=== PATIENT | female | born 1980 | race Caucasian/White ===

== ENCOUNTER 2021-05-10 09:35 | Emergency (ER) | payer OTHER ==
[~2021-05-10] VITALS: Ht 160 cm; Wt 59.9 kg
[~2021-05-10 09:35] MED LIST: HYOSCYAMINE0.375 M2 PO; NOHOMEMEDICATIONS; ZOFRAN 4 MG ORAL4 MG PO
[2021-05-10] MEDS ORDERED: IBUPROFEN 800800 MG PO (10:00)
[2021-05-10] MEDS ORDERED: AMOXICILLIN 50500 MG PO (10:00)
[2021-05-10 10:06] VITALS: BP 112/77
== END 2021-05-10 10:07 | disposition home or self-care (01) ==
LOC: M.ERS 09:35
DX: K02.9 Dental caries, unspecified (principal)